=== PATIENT | female | born 1945 | race Caucasian/White ===

== ENCOUNTER 2018-08-11 12:44 | Observation (INO) ==
--- NOTE | 2018-08-11 13:36 | ED ---
HPI General Chief complaint: Fall Stated complaint: Fall Time Seen by Provider: 08/11/18 13:14 History of Present Illness HPI narrative: 72-year-old female with history of osteoporosis, Chronic back pain, and fibromyalgia presents to the emergency department via [facility] after falling in the shower this morning. Patient reports she was showering when her feet slipped out from under her. She fell and hurt both knees and felt her left leg bent up to her face. She was found by her immediately after the fall and after about an hour and a half was able to transfer to her bed. She had a cup of tea and pain continued, so they decided to go to the emergency room. However they are unable to transfer to the car so they called the ambulance. She reports pain in bilateral knees, left hamstring pain, and left breast pain. She denies hitting her head, loss of consciousness, presyncopal symptoms, or any post ictal state. Her last fall was in 2007 where she fainted lost consciousness and hurt her her right foot requiring surgery. She reports this fall being different. She denies tingling in her extremities, any weakness , any chest pain, any shortness of breath, palpitations, or syncope. She denies any recent illness or recent travel. Related Data Home Medications Medication Instructions Recorded Confirmed alendronate 70 mg PO QWEEK 08/11/18 08/11/18 amlodipine [Norvasc] 5 mg PO DAILY 08/11/18 08/11/18 aspirin 81 mg PO DAILY 08/11/18 08/11/18 cranberry extract [Theracran] 1,300 mg PO DAILY 08/11/18 08/11/18 furosemide [Lasix] 20 mg PO DAILY 08/11/18 08/11/18 lisinopril 20 mg PO BID 08/11/18 08/11/18 lovastatin 20 mg PO DAILY 08/11/18 08/11/18 metoprolol tartrate 50 mg PO DAILY 08/11/18 08/11/18 gotjswht-oio-BY-lycopen-lutein 1 tab PO DAILY 08/11/18 08/11/18 [Centrum Silver] potassium chloride 10 meq PO DAILY 08/11/18 08/11/18 temazepam [Restoril] 15 mg PO HS PRN 08/11/18 08/11/18 Allergies Allergy/AdvReac Type Severity Reaction Status Date / Time penicillin G Allergy Severe ANAPHYLACTI Verified 08/11/18 18:50 C Review of Systems Constitutional Denies chills and Denies fever(s) ENT Denies headache(s) and Denies neck pain Cardiovascular Denies chest pain, Denies diaphoresis, Denies syncope, Denies edema, Denies lightheadedness and Denies palpitations Respiratory Denies cough, Denies dyspnea and Denies dyspnea on exertion Gastrointestinal Denies diarrhea, Denies nausea and Denies vomiting Genitourinary Denies urinary frequency and Denies urinary urgency Musculoskeletal Reports back pain, Reports arthralgias, Reports joint swelling, Reports neck pain, Denies numbness and Denies tingling Integumentary/Breasts Reports rash Neurologic Denies dizziness, Denies syncope, Denies numbness and Denies tingling PMFSH Social History Social History Substance History: No History of Abuse Smoking Status: Never smoker How Often Do You Have a Drink Containing Alcohol: Never Exam Narrative Exam Narrative: GENERAL: Uncomfortable but well-appearing female in no acute distress SKIN: Focused skin assessment warm/dry. HEAD: Atraumatic. Normocephalic. EYES: Pupils equal and round. No scleral icterus. No injection or drainage. ENT: No nasal bleeding or discharge. Mucous membranes pink and moist. NECK: Trachea midline. No JVD. CARDIOVASCULAR: Regular rate and rhythm. No murmur appreciated. RESPIRATORY: No accessory muscle use. Clear to auscultation. Breath sounds equal bilaterally. GASTROINTESTINAL: Abdomen soft, non-tender, nondistended. Hepatic and splenic margins not palpable. MUSCULOSKELETAL:Right anterior chest wall tenderness parasternally. Bilateral knees with mild edema and overlying ecchymosis that are tender to palpation. Painful but full range of motion both knees. Lower extremities neurovascularly intact.Bilateral hips are also tender palpation but it is difficult to discern if that is new or baseline from fibromyalgia NEUROLOGICAL: Awake and alert. No obvious cranial nerve deficits. Motor grossly within normal limits. Normal speech. PSYCHIATRIC: Appropriate mood and affect; insight and judgment normal. Course Initial Documented Vital Signs Pulse Rate 63 08/11/18 14:02 Respiratory Rate 18 08/11/18 14:02 Blood Pressure 127/58 L 08/11/18 14:02 Pulse Oximetry 98 08/11/18 14:02 Last Documented Vital Signs Pulse Rate 66 12/04/18 18:45 Respiratory Rate 18 08/11/18 18:45 Blood Pressure 138/71 08/11/18 18:45 Pulse Oximetry 96 08/11/18 18:45 Sign Out Sign Out Data: Patient Sign Out occurred on 08/11/18 at 18:01. Patient's care was discussed, and care was transferred from Prudencio Head to Tash Schmitz. Sign Out Comment: Patient signed out pending results of radiological studies rule out fracture dislocations. Last updated by Prudencio Head at 08/11/18 14:44 Medical Decision Making MDM Narrative Medical decision making narrative: This is a 72-year-old female with history of osteoporosis and fibromyalgia who presents to the ED via [facility] after falling in the shower today. Patient reports she was showering when her feet slipped from underneath her and she fell. She did not hit her head or lose consciousness. She did not feel any presyncopal or postictal symptoms. Reports pain in bilateral knees and left breast. Her called called the ambulance because they were not able to transfer her to the car due to the pain. Her pain is 10 out of 10 in bilateral knees and right chest, and she also has a history of fibromyalgia and chronic back pain.On arrival vital signs are unremarkable. She was a well-appearing but uncomfortable female in no acute distress. Bilateral knees were edematous with overlying ecchymosis. Range of motion was intact however painful. She also had right anterior chest wall/right breast pain from the fall and exquisite tenderness parasternally. Ultram given for pain management. X-ray of both knees, Ribs and pelvis are ordered. CT head was ordered as well to assess for any occult trauma. Results below: X-ray chest/ribs reveal deformities of the right seventh and eighth rib concerning for fractures. X-ray pelvis revealed no acute abnormality X-ray left knee revealed moderate joint effusion and spurring at the anterior patellar X-ray R knee revealed no acute abnormality ct of head with no acute intracranial abnormalities I attempted to ambulate patient, patient reports that she is unable to ambulate. Plan to give her a dose of Percocet, will attempt to ambulate after this. If she cannot ambulate, will admit to hospital for pain control as she does have 2 fractured ribs. Her pcp is Dr. Noe Ferro Xray of the right hip with no fracture, attempt was made to ambulate patient after she was given a dose of percocet - she was unable to ambulate due to severe pain all over her body plan to observe for pain control case reviewed with Dr. Lynn who accepts pt to service under Dr. Weinberg Medical Screen Exam Complete: Yes Emergency Medical Condition: Yes Imaging Data Radiologist's impression: Head CT 08/11/18 13:14 CONCLUSION: 1. No acute intracranial abnormality is identified. 2. Small air-fluid level in the sphenoid sinus. . Knee X-Ray 08/11/18 13:14 CONCLUSION: Moderate joint effusion. Spurring at the anterior patella and medial joint space. Knee X-Ray 08/11/18 13:14 CONCLUSION: No acute abnormality is seen. Pelvis X-Ray 08/11/18 13:14 CONCLUSION: No acute abnormality is seen. Ribs X-Ray 08/11/18 13:14 CONCLUSION: Deformities of the right seventh and eighth ribs concerning for possible fractures. [place] Hip X-Ray 08/11/18 18:55 CONCLUSION: 1. No acute fracture. Discharge Plan Discharge Disposition Patient Disposition: ED Admit(ED Internal Use Only) Discharge Condition Condition: Fair Discharge Order Discharge Orders: ED Use Only Admit Order (Routine); Ordered 08/11/18 Ordered By: Tash Schmitz Physicians Team ED Provider: Tash Schmitz Primary Care Provider: Teresa Loera Rxs /Orders / Referrals /Forms Prescriptions: No Action lisinopril 20 mg Tablet 20 mg PO BID RF: 0 alendronate 70 mg Tablet 70 mg PO QWEEK RF: 0 potassium chloride 10 mEq Tablet Extended Release 10 meq PO DAILY RF: 0 amlodipine [Norvasc] 5 mg Tablet 5 mg PO DAILY RF: 0 aspirin 81 mg Tablet,Delayed Release (Dr/Ec) 81 mg PO DAILY RF: 0 temazepam [Restoril] 15 mg Capsule 15 mg PO HS PRN (Reason: Sleep) RF: 0 metoprolol tartrate 50 mg Tablet 50 mg PO DAILY RF: 0 furosemide [Lasix] 20 mg Tablet 20 mg PO DAILY RF: 0 lovastatin 20 mg Tablet 20 mg PO DAILY RF: 0 yiwmzroq-hdn-YY-lycopen-lutein [Centrum Silver] 0.4-300-250 mg-mcg-mcg Tablet 1 tab PO DAILY RF: 0 cranberry extract [Theracran] 650 mg Capsule 1,300 mg PO DAILY RF: 0 Status ED Status: With Doctor
--- NOTE | 2018-08-11 15:04 | XR ---
EXAM DATE: 08/11/2018 2:33 PM EST AGE/SEX: 72 years / Female INDICATIONS: Right ribs and chest pain due to fall. CLINICAL DATA: This is the patient's initial encounter. Patient reports that signs and symptoms have been present for 1 day and indicates a pain score of 9/10. MEDICAL/SURGICAL HISTORY: None. None. COMPARISON: No prior exams available for comparison. FINDINGS: There is some thickening of the anterior lateral right eighth rib concerning for possible fracture. A lucent fracture line is not seen. There also appears to be some possible expansion at the posterior lateral seventh rib on the right. A pneumothorax is not seen. The patient does have a 2 cm calcificat ion in the right upper quadrant but represent a gallstone. CONCLUSION: Deformities of the right seventh and eighth ribs concerning for possible fractures. [facility] Electronically signed by: Franki Howell MD 08/11/2018 3:03 PM EST
--- NOTE | 2018-08-11 15:06 | XR ---
EXAM DATE: 08/11/2018 2:45 PM EST AGE/SEX: 72 years / Female INDICATIONS: Pelvis pain due to fall. CLINICAL DATA: This is the patient's initial encounter. Patient reports that signs and symptoms have been present for 1 day and indicates a pain score of 9/10. MEDICAL/SURGICAL HISTORY: None. None. COMPARISON: No prior exams available for comparison. FINDINGS: A fracture is not seen. The hip joints normally aligned. There is some sclerosis at the medial pubic bones at the pubic symphysis. The bones appear osteopenic. CONCLUSION: No acute abnormality is seen. Electronically signed by: Franki Howell MD 08/11/2018 3:04 PM EST
--- NOTE | 2018-08-11 15:06 | XR ---
EXAM DATE: 08/11/2018 2:37 PM EST AGE/SEX: 72 years / Female INDICATIONS: Left knee pain due to fall. CLINICAL DATA: This is the patient's initial encounter. Patient reports that signs and symptoms have been present for 1 day and indicates a pain score of 9/10. MEDICAL/SURGICAL HISTORY: None. None. COMPARISON: No prior exams available for comparison. FINDINGS: The knee joint is aligned. No fracture is seen. There is a moderate joint effusion. There is spurring at the anterior superior aspect of the patella and at the medial joint space. The bones are osteopen ic. CONCLUSION: Moderate joint effusion. Spurring at the anterior patella and medial joint space. Electronically signed by: Franki Howell MD 08/11/2018 3:05 PM EST
--- NOTE | 2018-08-11 15:14 | XR ---
EXAM DATE: 08/11/2018 2:36 PM EST AGE/SEX: 72 years / Female INDICATIONS: Pelvis pain due to fall. CLINICAL DATA: This is the patient's initial encounter. Patient reports that signs and symptoms have been present for 1 day and indicates a pain score of 9/10. MEDICAL/SURGICAL HISTORY: None. None. COMPARISON: No prior exams available for comparison. FINDINGS: There is mild narrowing of the medial aspect of the joint space. There is mild spurring seen medially . There is also spurring at the superior aspect of the patella. An acute fracture is not seen. No eff usion is seen. CONCLUSION: No acute abnormality is seen. Electronically signed by: Franki Howell MD 08/11/2018 3:13 PM EST
--- NOTE | 2018-08-11 15:49 | CT ---
EXAM DATE: 08/11/2018 3:44 PM EST AGE/SEX: 72 years / Female INDICATIONS: Trauma, fall in shower. CLINICAL DATA: This is the patient's initial encounter. Patient reports that signs and symptoms have been present for 1 day and indicates a pain score of 4/10. MEDICAL/SURGICAL HISTORY: Osteoporosis. Fibromyalgia. Non-responsive. RADIATION DOSE: 39.08 CTDI (mGy) COMPARISON: No prior exams available for comparison. TECHNIQUE: CT of the head without contrast. Using automated exposure control and adjustment of the mA and/or kV according to patient size, radiation dose was kept as low as reasonably achievable to ob tain optimal diagnostic quality images. DICOM format image data is available electronically for revi ew and comparison. FINDINGS: Cerebrum: There is mild generalized atrophy and ventricles are normal given the degree of atrophy. M ild periventricular white matter change is present. No midline shift, mass lesion, hemorrhage or acu te infarction. No extraaxial fluid collections are seen. Posterior Fossa: The cerebellum and brainstem demonstrate no acute abnormality. The 4th ventricle is midline. The cerebellopontine angle is within normal limits. Extracranial: There is a small air-fluid level in the left sphenoid sinus. Otherwise, the visualized sinuses are clear. Skull: The calvaria is intact. No skull fracture. CONCLUSION: 1. No acute intracranial abnormality is identified. 2. Small air-fluid level in the sphenoid sinus. . Electronically signed by: Franki Tafoya MD 08/11/2018 3:47 PM EST
--- NOTE | 2018-08-11 19:37 | XR ---
EXAM DATE: 08/11/2018 7:34 PM EST AGE/SEX: 72 years / Female INDICATIONS: Right hip pain. Patient fell today. CLINICAL DATA: This is the patient's initial encounter. Patient reports that signs and symptoms have been present for 1 day and indicates a pain score of 4/10. MEDICAL/SURGICAL HISTORY: . Osteoporosis. Fibromyalgia. . COMPARISON: No prior exams available for comparison. FINDINGS: Bony structures are intact and in normal alignment. Joints are intact without dislocation or signifi cant arthropathy. Osseous density is normal. Soft tissues are unremarkable. No radiopaque foreign bodies seen. CONCLUSION: 1. No acute fracture. Electronically signed by: Xavi Ott MD 08/11/2018 7:36 PM EST
[2018-08-11 21:52] LABS: Baso % (Auto) 0.3 % (0.0-2.0); Eos % (Auto) 0.3 % (0.0-4.0); Hematocrit 38.4 % (35.0-46.0); Hemoglobin 12.4 gm/dL (11.6-15.3); Lymph # (Auto) 0.7 th/mm3 (1.0-4.8); Lymph % (Auto) 6.4 % (9.0-44.0); Mean Corpuscular HGB Conc 32.2 % (32.0-36.0); Mean Corpuscular Hemoglobin 29.8 pg (27.0-34.0); Mean Corpuscular Volume 92.6 fL (80.0-100.0); Mean Platelet Volume 8.5 fL (7.0-11.0); Mono # (Auto) 0.8 th/mm3 (0.0-0.9); Mono % (Auto) 6.9 % (0.0-8.0); Neut # (Auto) 9.7 th/mm3 (1.8-7.7); Neut % (Auto) 86.1 % (16.0-70.0); Platelet Count 246 th/mm3 (150-450); Red Blood Count 4.15 mil/mm3 (4.00-5.30); Red Cell Distribution Width 15.1 % (11.6-17.2); White Blood Count 11.3 th/mm3 (4.0-11.0)
[2018-08-11 22:03] LABS: Calcium 7.6 mg/dL (8.5-10.1); Carbon Dioxide 21.1 meq/L (21.0-32.0); Potassium 3.4 meq/L (3.5-5.1)
[2018-08-11] MEDS ORDERED: Temazepam 15 MG Capsule PO PRN (22:08)
--- NOTE | 2018-08-11 22:34 | P.HP ---
History of Present Illness Service: [facility] hospitalist Primary Care Physician: Teresa Loera MD Chief Complaint: fall inability to ambulate History of Present Illness: 72-year-old female with history of osteoporosis, Chronic back pain, and fibromyalgia presents to the emergency department via [facility] after falling in the shower this morning. Patient reports she was showering when her feet slipped out from under her. She fell and hurt both knees and felt her left leg bent up to her face. She was found by her immediately after the fall and after about an hour and a half was able to transfer to her bed. She had a cup of tea and pain continued, so they decided to go to the emergency room. However they are unable to transfer to the car so they called the ambulance. She reports pain in bilateral knees, left hamstring pain, left hip and left breast pain. She denies hitting her head, loss of consciousness, presyncopal symptoms, or any post ictal state. Her last fall was in 2007 where she fainted lost consciousness and hurt her her right foot requiring surgery. She reports this fall being different. She denies tingling in her extremities, any weakness, any chest pain, any shortness of breath, palpitations, or syncope. She denies any recent illness or recent trauma. In er received percocet which did help with pain ,labs were unremarkable some slight decrease in potassium,xrays were unremarkable but does have tenderness on moving left hip,with continued inability to ambulate will admit to observation continue percocet ,get PT evaluation and CT left hip. Also does have 2 rib fractures. Patient with pmh hypertension,hyperlipidemia. - Diagnosis (1) Intractable pain (2) Left hip pain (3) Rib fractures (4) Hypertension Review of Systems Constitutional: Reports body ache(s), Reports weakness Musculoskeletal: Reports abnormal walking, Reports back pain, Reports body aches , Reports joint pain PMFSH - History History Provided By: Patient - Social History I have reviewed the patient's Social History: Yes - Tobacco History Smoking Status: Never smoker - Alcohol History How Often Do You Have a Drink Containing Alcohol: Never - Substance Use History Substance History: No History of Abuse - Immunization History Tetanus Immunization: Unsure Medications and Allergies Active Medications: Active Medications Acetaminophen (Tylenol) 650 mg PO Q8H PRN PRN Reason: Temp > 100.4 Alendronate Sodium (Fosamax) 70 mg PO QWEEK [facility] Amlodipine Besylate (Norvasc) 5 mg PO DAILY [facility] Aspirin (Ecotrin) 81 mg PO DAILY [facility] Furosemide (Lasix) 20 mg PO DAILY [facility] Lisinopril (Prinivil) 20 mg PO BID [facility] Metoprolol Tartrate (Lopressor) 50 mg PO DAILY [facility] Multivitamins (Theragran) 1 tab PO DAILY [facility] Non-Formulary Medication (Cranberry Extract [Theracran]) 1,300 mg PO DAILY [facility] Non-Formulary Medication (Lovastatin [Lovastatin]) 20 mg PO DAILY [facility] Ondansetron HCl (Zofran Inj) 4 mg IV.PUSH Q6H PRN PRN Reason: NAUSEA OR VOMITING Oxycodone/Acetaminophen (Percocet 5/325 Mg) 1 tab PO Q4H PRN PRN Reason: PAIN SCALE 6 TO 10 Potassium Chloride (Klor-Con 10) 10 meq PO DAILY [facility] Senna/Docusate Sodium (Chata-Colace) 1 tab PO BID [facility] Sodium Chloride (Ns Flush) 2 ml IV.FLUSH PRN PRN PRN Reason: FLUSH AFTER USING IV ACCESS Sodium Chloride (Ns Flush) 2 ml IV.FLUSH PRN PRN PRN Reason: FLUSH AFTER USING IV ACCESS Sodium Chloride (Ns Flush) 2 ml IV.FLUSH BID [facility] Temazepam (Restoril) 15 mg PO HS PRN PRN Reason: Sleep Allergies Allergy/AdvReac Type Severity Reaction Status Date / Time penicillin G Allergy Severe ANAPHYLACTI Verified 08/11/18 18:50 C Home Medications Medication Instructions Recorded Confirmed Type alendronate 70 mg PO QWEEK 08/11/18 08/11/18 History amlodipine [Norvasc] 5 mg PO DAILY 08/11/18 08/11/18 History aspirin 81 mg PO DAILY 08/11/18 08/11/18 History cranberry extract [Theracran] 1,300 mg PO DAILY 08/11/18 08/11/18 History furosemide [Lasix] 20 mg PO DAILY 08/11/18 08/11/18 History lisinopril 20 mg PO BID 08/11/18 08/11/18 History lovastatin 20 mg PO DAILY 08/11/18 08/11/18 History metoprolol tartrate 50 mg PO DAILY 08/11/18 08/11/18 History wlwnbqjn-ehr-WF-lycopen-lutein 1 tab PO DAILY 08/11/18 08/11/18 History [Centrum Silver] potassium chloride 10 meq PO DAILY 08/11/18 08/11/18 History temazepam [Restoril] 15 mg PO HS PRN 08/11/18 08/11/18 History Exam Vital signs: Vital Signs 08/11/18 14:02 08/11/18 18:02 08/11/18 18:45 Pulse Rate 63 64 66 Respiratory Rate 18 Blood Pressure 127/58 L 127/84 138/71 Pulse Oximetry 98 97 96 08/11/18 21:39 Pulse Rate 64 Respiratory Rate 16 Blood Pressure 128/61 Pulse Oximetry 95 Intake & Output 08/11/18 08/11/18 08/12/18 06:59 18:59 06:59 Weight 110.677 kg Narrative: GENERAL: SKIN: Warm and dry. HEAD: Normocephalic. EYES: No scleral icterus. No injection or drainage. NECK: Supple, trachea midline. No JVD or lymphadenopathy. CARDIOVASCULAR: Regular rate and rhythm without murmurs, gallops, or rubs. RESPIRATORY: Breath sounds equal bilaterally. No accessory muscle use. GASTROINTESTINAL: Abdomen soft, non-tender, nondistended. MUSCULOSKELETAL: bruses knees rt hip pain on movement left hip also ribs BACK: tender without obvious deformity. No CVA tenderness. Results - Labs CBC & Chem 7: 08/11/18 21:30 08/11/18 21:30 Labs: Laboratory Results - last 24 hr 08/11/18 08/11/18 21:30 21:30 WBC 11.3 H RBC 4.15 Hgb 12.4 Hct 38.4 MCV 92.6 MCH 29.8 MCHC 32.2 RDW 15.1 Plt Count 246 MPV 8.5 Neut % (Auto) 86.1 H Lymph % (Auto) 6.4 L [place] % (Auto) 6.9 Eos % (Auto) 0.3 Baso % (Auto) 0.3 Neut # (Auto) 9.7 H Lymph # (Auto) 0.7 L [place] # (Auto) 0.8 Eos # (Auto) 0.0 Baso # (Auto) 0.0 WBC Differential . Differential Comment Auto diff final Sodium 145 Potassium 3.4 L Chloride 114 H Carbon Dioxide 21.1 Anion Gap 10 BUN 32 H Creatinine 1.06 H Estimated GFR 51 L Random Glucose 69 L Calcium 7.6 L - Imaging Impressions Head CT 08/11/18 13:14 CONCLUSION: 1. No acute intracranial abnormality is identified. 2. Small air-fluid level in the sphenoid sinus. . Knee X-Ray 08/11/18 13:14 CONCLUSION: Moderate joint effusion. Spurring at the anterior patella and medial joint space. Knee X-Ray 08/11/18 13:14 CONCLUSION: No acute abnormality is seen. Pelvis X-Ray 08/11/18 13:14 CONCLUSION: No acute abnormality is seen. Ribs X-Ray 08/11/18 13:14 CONCLUSION: Deformities of the right seventh and eighth ribs concerning for possible fractures. [place] Hip X-Ray 08/11/18 18:55 CONCLUSION: 1. No acute fracture. Caprini VTE Risk Assessment Caprini VTE Risk Assessment: Moderate/High Risk (score >= 2) Caprini Risk Assessment Model: Point Value = 1 Point Value = 2 Point Value = 3 Point Value = 5 Age 41-60 Minor surgery BMI > 25 kg/m2 Swollen legs Varicose veins or History of unexplained or recurrent spontaneous Oral contraceptives or hormone replacement Sepsis (< 1 month) Serious lung disease, including pneumonia (< 1 month) Abnormal pulmonary function Acute myocardial infarction Congestive heart failure (< 1 month) History of inflammatory bowel disease Medical patient at bed rest Age 61-74 Arthroscopic surgery Major open surgery (> 45 min) Laparoscopic surgery (> 45 min) Malignancy Confined to bed (> 72 hours) Immobilizing plaster cast Central venous access Age >= 75 History of VTE Family history of VTE Factor V Leiden Prothrombin [id number] Lupus anticoagulant Anticardiolipin antibodies Elevated serum homocysteine Heparin-induced thrombocytopenia Other congenital or acquired thrombophilia Stroke (< 1 month) Elective arthroplasty Hip, pelvis, or leg fracture Acute spinal cord injury (< 1 month) Prophylaxis Regimen: Total Risk Factor Score Risk Level Prophylaxis Regimen 0-1 Low Early ambulation 2 Moderate Order ONE of the following: *Sequential Compression Device (SCD) *Heparin 5000 units SQ BID 3-4 Higher Order ONE of the following medications: *Heparin 5000 units SQ TID *Enoxaparin/Lovenox 40 mg SQ daily (WT < 150 kg, CrCl > 30 mL/min) *Enoxaparin/Lovenox 30 mg SQ daily (WT < 150 kg, CrCl > 10-29 mL/min) *Enoxaparin/Lovenox 30 mg SQ BID (WT < 150 kg, CrCl > 30 mL/min) AND/OR *Sequential Compression Device (SCD) 5 or more Highest Order ONE of the following medications: *Heparin 5000 units SQ TID (Preferred with Epidurals) *Enoxaparin/Lovenox 40 mg SQ daily (WT < 150 kg, CrCl > 30 mL/min) *Enoxaparin/Lovenox 30 mg SQ daily (WT < 150 kg, CrCl > 10-29 mL/min) *Enoxaparin/Lovenox 30 mg SQ BID (WT < 150 kg, CrCl > 30 mL/min) AND *Sequential Compression Device (SCD) Assessment and Plan - Assessment (1) Intractable pain Code(s): R52 - Pain, unspecified Status: Acute Plan: continue percocet PT to evaluate (2) Left hip pain Code(s): M25.552 - Pain in left hip Status: Acute Plan: xray was unremarkable but tender on movement will get CT (3) Rib fractures Code(s): S22.39XA - Fracture of one rib, unspecified side, initial encounter for closed fracture Status: Acute Plan: continue percocet (4) Hypertension Code(s): I10 - Essential (primary) hypertension Status: Acute Plan: continue home medication - Plan further plan as case develops did discuss rehab with patient she prefers to go home Code Status: full Discussed Condition With: patient
--- NOTE | 2018-08-11 23:14 | CT ---
EXAM DATE: 08/11/2018 11:08 PM EST AGE/SEX: 72 years / Female INDICATIONS: Fall. Left hip pain. CLINICAL DATA: This is the patient's initial encounter. Patient reports that signs and symptoms have been present for 1 day and indicates a pain score of 8/10. MEDICAL/SURGICAL HISTORY: None. None. RADIATION DOSE: 65.94 CTDI (mGy) ; Patient body habitus COMPARISON: None . TECHNIQUE: Multiple contiguous axial images were acquired using a multirow detector CT scanner witho ut contrast. Multiplanar reconstruction was performed in the sagittal and coronal planes. Using aut omated exposure control and adjustment of the mA and/or kV according to patient size, radiation dose was kept as low as reasonably achievable to obtain optimal diagnostic quality images. DICOM format i mage data is available electronically for review and comparison. FINDINGS: Bones: The bony structures about the hip are in normal alignment. The trabecular pattern of the fem oral neck is intact. No fracture is seen. The bony pelvic ring is intact. Joints: Degenerative changes involving the SI joints and hips bilaterally. . Soft Tissues: Unremarkable for a non-contrast study. Colonic diverticuli scattered throughout the si gmoid colon. No acute inflammation. Other: No foreign bodies seen. CONCLUSION: 1. No acute abnormality. Electronically signed by: Iván Aguirre MD 08/11/2018 11:13 PM EST
[2018-08-12 05:02] LABS: Baso % (Auto) 0.4 % (0.0-2.0); Eos % (Auto) 0.5 % (0.0-4.0); Hematocrit 34.6 % (35.0-46.0); Hemoglobin 11.3 gm/dL (11.6-15.3); Lymph # (Auto) 0.7 th/mm3 (1.0-4.8); Lymph % (Auto) 13.7 % (9.0-44.0); Mean Corpuscular HGB Conc 32.7 % (32.0-36.0); Mean Corpuscular Hemoglobin 30.6 pg (27.0-34.0); Mean Corpuscular Volume 93.4 fL (80.0-100.0); Mean Platelet Volume 7.7 fL (7.0-11.0); Mono # (Auto) 0.7 th/mm3 (0.0-0.9); Mono % (Auto) 12.3 % (0.0-8.0); Neut % (Auto) 73.1 % (16.0-70.0); Platelet Count 199 th/mm3 (150-450); Red Cell Distribution Width 15.3 % (11.6-17.2); White Blood Count 5.4 th/mm3 (4.0-11.0)
[2018-08-12 05:39] LABS: Carbon Dioxide 22.8 meq/L (21.0-32.0); Potassium 4.5 meq/L (3.5-5.1)
[2018-08-12] MEDS: Furosemide 20 MG Tablet PO SCH (08:28)
[2018-08-12] MEDS: Acetaminophen 325 MG Tablet PO PRN ×2 (08:28→17:53)
[2018-08-12] MEDS: Senna/Docusate Sodium 8.6/50 MG Tablet PO SCH ×2 (08:29→20:49)
[2018-08-12] MEDS: Lisinopril 20 MG Tablet PO SCH ×2 (08:29→20:43)
[2018-08-12] MEDS: amLODIPine 5 MG Tablet PO SCH (08:29)
[2018-08-12] MEDS: Metoprolol Tartrate 50 MG Tablet PO SCH (08:30)
[2018-08-12] MEDS ORDERED: CRANBERRY EXTRACT PO SCH (09:00)
--- NOTE | 2018-08-12 19:17 | P.PNIM ---
Subjective Interval history: Patient resting in bed patient reports she has not yet gotten out of bed PT did not work with pt today Physical Exam Vital signs: Last Vital Signs Temp 98.1 F 08/12/18 16:00 Pulse 63 08/12/18 16:00 Resp 16 08/12/18 16:00 BP 129/66 08/12/18 16:00 Pulse Ox 96 08/12/18 16:00 Narrative: GENERAL: This is a well-nourished, well-developed patient, in no apparent distress. CARDIOVASCULAR: Regular rate and rhythm without murmurs, gallops, or rubs. RESPIRATORY: Clear to auscultation. Breath sounds equal bilaterally. No wheezes , rales, or rhonchi. GASTROINTESTINAL: Abdomen soft, non-tender, nondistended. Normal active bowel sounds MUSCULOSKELETAL: Extremities without clubbing, cyanosis, or edema. NEURO: Alert & Oriented x4 to person, place, time, situation. Moves all ext x4 Results Labs CBC & Chem 7: 08/12/18 04:29 08/12/18 04:29 Assessment and Plan Assessment (1) Intractable pain: Code(s): R52 - Pain, unspecified Status: Acute (2) Left hip pain: Code(s): M25.552 - Pain in left hip Status: Acute (3) Rib fractures: Code(s): S22.39XA - Fracture of one rib, unspecified side, initial encounter for closed fracture Status: Acute (4) Hypertension: Code(s): I10 - Essential (primary) hypertension Status: Acute Plan 72-year-old female with history of osteoporosis, Chronic back pain, and fibromyalgia presents to the emergency department via [facility] after falling in the shower this morning. Patient reports she was showering when her feet slipped out from under her. She fell and hurt both knees and felt her left leg bent up to her face. She was found by her immediately after the fall and after about an hour and a half was able to transfer to her bed. She had a cup of tea and pain continued, so they decided to go to the emergency room. However they are unable to transfer to the car so they called the ambulance. She reports pain in bilateral knees, left hamstring pain, left hip and left breast pain. She denies hitting her head, loss of consciousness, presyncopal symptoms, or any post ictal state. Her last fall was in 2007 where she fainted lost consciousness and hurt her her right foot requiring surgery. She reports this fall being different. She denies tingling in her extremities, any weakness, any chest pain, any shortness of breath, palpitations, or syncope. She denies any recent illness or recent trauma. In er received percocet which did help with pain ,labs were unremarkable some slight decrease in potassium,xrays were unremarkable but does have tenderness on moving left hip,with continued inability to ambulate will admit to observation continue percocet ,get PT evaluation and CT left hip. Also does have 2 rib fractures. Patient with pmh hypertension,hyperlipidemia. Fall Hip CT 08/11/18 1. No acute abnormality. Head CT 08/11/18 1. No acute intracranial abnormality is identified. 2. Small air-fluid level in the sphenoid sinus. Knee X-Ray 08/11/18 Moderate joint effusion. Spurring at the anterior patella and medial joint space. Knee X-Ray 08/11/18 13:14 CONCLUSION: No acute abnormality is seen. Pelvis X-Ray 08/11/18 No acute abnormality is seen. Ribs X-Ray 08/11/18 Deformities of the right seventh and eighth ribs concerning for possible fractures. Gallstone Hip X-Ray 08/11/18 1. No acute fracture. Pt consulted Percocet as needed for pain IS discussed with pt that she may need to go SNF. Pt resistant. ice to affected areas as needed Hypokalemia potassium 3.5 on admission replaced potassium 4.5 on recheck Plan to DC to SNF in AM Attending Attestation The exam, history, and the medical decision-making described in the above note were completed with the assistance of the mid-level provider. I reviewed and agree with the findings presented. I attest that I had a [id number] encounter with the patient on the same day, and personally performed and documented my assessment and findings in the medical record. Patient examined. Assessment and plan formulated with Julia Matthews PA-C. I agree with the above. Progress Note: Quality VTE Deep Vein Thrombosis/Pulmonary Embolism Present on Admission: No _ (1) Rib fractures Qualifiers: Encounter type: Fracture healing: Fracture type: Laterality: Rib fracture type: (2) Hypertension Qualifiers: Hypertension type:
[2018-08-13] MEDS: Senna/Docusate Sodium 8.6/50 MG Tablet PO SCH (08:22)
[2018-08-13] MEDS: Lisinopril 20 MG Tablet PO SCH (08:23)
[2018-08-13] MEDS: Metoprolol Tartrate 50 MG Tablet PO SCH (08:23)
[2018-08-13] MEDS: amLODIPine 5 MG Tablet PO SCH (08:23)
[2018-08-13] MEDS: Furosemide 20 MG Tablet PO SCH (08:24)
--- NOTE | 2018-08-13 10:55 | P.DCO ---
Diagnosis (1) Intractable pain: Status: Acute (2) Left hip pain: Status: Acute (3) Rib fractures: Status: Acute (4) Hypertension: Status: Acute Physical Therapy Order: Evaluate and treat Home Health Nursing Order: Medical education, Signs/symptoms of disease process and Nursing assessment with vital signs Case Management Consult Case Management Consult-Home Health: Yes I have seen patient Frances Kaye on 08/13/18. My clinical findings support the need for the requested home health care services because: Limited mobility due to disease progression I certify that my clinical findings support that this patient is homebound because: Unsteady gait/balance _ (1) Rib fractures Qualifiers: Encounter type: Fracture healing: Fracture type: Laterality: Rib fracture type: (2) Hypertension Qualifiers: Hypertension type:
--- NOTE | 2018-08-13 10:59 | P.DS ---
DS: Providers Date of admission: 08/11/18 20:54 Primary care physician: Teresa Loera MD Brief History from admission: 72-year-old female with history of osteoporosis, Chronic back pain, and fibromyalgia presents to the emergency department via [facility] after falling in the shower this morning. Patient reports she was showering when her feet slipped out from under her. She fell and hurt both knees and felt her left leg bent up to her face. She was found by her immediately after the fall and after about an hour and a half was able to transfer to her bed. She had a cup of tea and pain continued, so they decided to go to the emergency room. However they are unable to transfer to the car so they called the ambulance. She reports pain in bilateral knees, left hamstring pain, left hip and left breast pain. She denies hitting her head, loss of consciousness, presyncopal symptoms, or any post ictal state. Her last fall was in 2007 where she fainted lost consciousness and hurt her her right foot requiring surgery. She reports this fall being different. She denies tingling in her extremities, any weakness, any chest pain, any shortness of breath, palpitations, or syncope. She denies any recent illness or recent trauma. In er received percocet which did help with pain ,labs were unremarkable some slight decrease in potassium,xrays were unremarkable but does have tenderness on moving left hip,with continued inability to ambulate will admit to observation continue percocet ,get PT evaluation and CT left hip. Also does have 2 rib fractures. Patient with pmh hypertension,hyperlipidemia. DS: Diagnosis Discharge Diagnosis (1) Intractable pain: Status: Acute (2) Left hip pain: Status: Acute (3) Rib fractures: Status: Acute (4) Hypertension: Status: Acute DS: Summary 72-year-old female with history of osteoporosis, Chronic back pain, and fibromyalgia presents to the emergency department via [facility] after falling in the shower this morning. Patient reports she was showering when her feet slipped out from under her. She fell and hurt both knees and felt her left leg bent up to her face. She was found by her immediately after the fall and after about an hour and a half was able to transfer to her bed. She had a cup of tea and pain continued, so they decided to go to the emergency room. However they are unable to transfer to the car so they called the ambulance. She reports pain in bilateral knees, left hamstring pain, left hip and left breast pain. She denies hitting her head, loss of consciousness, presyncopal symptoms, or any post ictal state. Her last fall was in 2007 where she fainted lost consciousness and hurt her her right foot requiring surgery. She reports this fall being different. She denies tingling in her extremities, any weakness, any chest pain, any shortness of breath, palpitations, or syncope. She denies any recent illness or recent trauma. In er received percocet which did help with pain ,labs were unremarkable some slight decrease in potassium,xrays were unremarkable but does have tenderness on moving left hip,with continued inability to ambulate will admit to observation continue percocet ,get PT evaluation and CT left hip. Also does have 2 rib fractures. Patient with pmh hypertension,hyperlipidemia. Fall Hip CT 08/11/18 1. No acute abnormality. Head CT 08/11/18 1. No acute intracranial abnormality is identified. 2. Small air-fluid level in the sphenoid sinus. Knee X-Ray 08/11/18 Moderate joint effusion. Spurring at the anterior patella and medial joint space. Knee X-Ray 08/11/18 13:14 CONCLUSION: No acute abnormality is seen. Pelvis X-Ray 08/11/18 No acute abnormality is seen. Ribs X-Ray 08/11/18 Deformities of the right seventh and eighth ribs concerning for possible fractures. Gallstone Hip X-Ray 08/11/18 1. No acute fracture. Pt consulted -> patient ambulated with PT today (08/13). PT recommending DC home with [facility] IS ice to affected areas as needed Hypokalemia potassium 3.5 on admission replaced potassium 4.5 on recheck DC to home with [facility] PT in stable condition. Patient to continue home medications and follow up with PCP in 1 week The exam, history, and the medical decision-making described in the above note were completed with the assistance of the mid-level provider. I reviewed and agree with the findings presented. I attest that I had a [id number] encounter with the patient on the same day, and personally performed and documented my assessment and findings in the medical record. Patient examined. Assessment and plan formulated with Julia Matthews PA-C. I agree with the above. Time Spent with Patient Total time spent providing and/or coordinating discharge services: Quality: VTE Deep Vein Thrombosis/Pulmonary Embolism Present on Admission: No Exam Narrative Exam Narrative: GENERAL: This is a well-nourished, well-developed patient, in no apparent distress. CARDIOVASCULAR: Regular rate and rhythm RESPIRATORY: Clear to auscultation. Breath sounds equal bilaterally. GASTROINTESTINAL: Abdomen soft, non-tender, nondistended. Normal active bowel sounds MUSCULOSKELETAL: Extremities without clubbing, cyanosis, or edema. NEURO: Alert & Oriented x4 to person, place, time, situation. Moves all ext x4 Results Impressions ITS Impressions Hip CT 08/11/18 00:00 CONCLUSION: 1. No acute abnormality. Head CT 08/11/18 13:14 CONCLUSION: 1. No acute intracranial abnormality is identified. 2. Small air-fluid level in the sphenoid sinus. . Knee X-Ray 08/11/18 13:14 CONCLUSION: No acute abnormality is seen. Pelvis X-Ray 08/11/18 13:14 CONCLUSION: No acute abnormality is seen. Ribs X-Ray 08/11/18 13:14 CONCLUSION: Deformities of the right seventh and eighth ribs concerning for possible fractures. Gallstone Hip X-Ray 08/11/18 18:55 CONCLUSION: 1. No acute fracture. Discharge Plan Discharge Disposition Patient Disposition: W/Home Health Service Discharge Condition Condition: Stable Discharge Order Discharge Orders: Discharge Order (Routine); Ordered 08/13/18 Ordered By: Julia Matthews Discharge Details Anticipated Discharge Date: 08/13/18 Physicians Team Primary Care Provider: Teresa Loera Attending Provider: Chino Weinberg Rxs /Orders / Referrals /Forms Prescriptions: Continue lisinopril 20 mg Tablet 20 mg PO BID RF: 0 alendronate 70 mg Tablet 70 mg PO QWEEK RF: 0 potassium chloride 10 mEq Tablet Extended Release 10 meq PO DAILY RF: 0 amlodipine [Norvasc] 5 mg Tablet 5 mg PO DAILY RF: 0 aspirin 81 mg Tablet,Delayed Release (Dr/Ec) 81 mg PO DAILY RF: 0 temazepam [Restoril] 15 mg Capsule 15 mg PO HS PRN (Reason: Sleep) RF: 0 metoprolol tartrate 50 mg Tablet 50 mg PO DAILY RF: 0 furosemide [Lasix] 20 mg Tablet 20 mg PO DAILY RF: 0 lovastatin 20 mg Tablet 20 mg PO DAILY RF: 0 wuepbxkz-lme-ZY-lycopen-lutein [Centrum Silver] 0.4-300-250 mg-mcg-mcg Tablet 1 tab PO DAILY RF: 0 cranberry extract [Theracran] 650 mg Capsule 1,300 mg PO DAILY RF: 0 Referrals: Teresa Loera MD [Primary Care Provider] - See Instructions (follow up in 1 week) Status ED Status: Left Department
== END 2018-08-13 14:24 | disposition home health service (06) ==
LOC: NEDA 12:44 → NEPE 12:44 → NEPGCP 08-12 00:39
PROVIDERS: ADMIT Hospitalist; ATTEND Hospitalist